=== PATIENT | male | born 1950 | race African-American/Black ===

== ENCOUNTER 2024-03-22 06:23 | Day surgery (SDC) | payer OTHER, SELFPAY ==
--- NOTE | 2023-09-22 11:57 | CM ---
Addendum entered by Vannesa Kim 02/17/24 12:11:
Patient's surgery date has been changed to 03/22/24. Spoke with patient via telephone. Reintroduced role of Orthopedic Navigator and confirmed information previously obtained for case management assessment. Also discussed orthopedic program and post
surgical plans. Reviewed anticipated length of stay and that goal is for him to return home at discharge. He continues to state that he will need VN services at discharge. He has watched the online education program but will watch it again prior to
surgery.
Addendum entered by Vannesa Kim 11/20/23 11:19:
Patient's surgery date has changed to 12/29/23.
Original Note:
Patient is scheduled for an elective L THR on 10/27/23. Spoke with patient prior to surgery via telephone. Introduced role of Orthopedic Navigator. Patient reports that he lives alone in a one story home. There is one step to enter, then 14-1 steps
to his apartment. He currently functions independently. He has canes, a grabber and long handled shoe horn. He has never had VN services. PCP is Ramirez Velasco.
Discussed orthopedic program and post surgical plans. Reviewed anticipated length of stay and that goal is for him to return home at discharge. Also reviewed outpatient PT. Patient is in agreement with tentative plan but will not have transportation
for outpatient PT and will need VN services. He states that he will have support from his friends but will not have anyone staying with him.
Patient will complete online education.
Plan: Orthopedic Navigator will remain available to assist with the care of patient and will reassess discharge needs after surgery.
[2023-10-06 13:53] VITALS: BMI 29.8
[2023-10-06 13:58] LABS: Hematocrit 40.4 % (39.0-52.0); Hemoglobin 13.8 g/dL (13.0-18.0); Mean Corp Hgb Conc. 34.2 g/dL (33.0-37.0); Mean Corpuscular Hgb 30.8 pg (27.0-31.0); Mean Corpuscular Volume 90.2 fL (80.0-94.0); Mean Platelet Volume 10.4 fL (7.4-10.4); Platelet Count 249 10^3/uL (130-400); Red Blood Cell Count 4.48 10^6/uL (4.70-6.10); Red Cell Dist. Width 13.5 % (11.5-14.5); White Blood Cell Count 4.8 10^3/uL (4.8-10.8)
[2023-10-06 14:09] LABS: ALT (SGPT) 32 U/L (0-50); AST (SGOT) 32 U/L (17-59); Albumin 4.1 g/dl (3.5-5.0); Alkaline Phosphatase 159 U/L (38-126); Blood Urea Nitrogen 21 mg/dl (9-20); Calcium 10.4 mg/dl (8.4-10.2); Carbon Dioxide 34 mmol/L (22-30); Chloride 97 mmol/L (98-107); Estimated Creatinine Clearance 53 ml/min; Glomerular Filtration Rate > 60.0; Glucose 72 mg/dl (70-99); Sodium 139 mmol/L (135-145); Total Bilirubin 1.3 mg/dl (0.2-1.3)
[2023-10-06 14:36] LABS: Glycohemoglobin (HgbA1c) 5.8 % (4.0-5.6)
[2023-10-06 14:41] VITALS: BMI 29.8
--- NOTE | 2023-10-21 10:23 | W.PREADMORTH ---
Ortho Preadmission Testing
-
The patient's surgery date of 10/27/2023 will be postponed due to dental decay requiring 3 tooth extractions prior to surgery.
His surgery date has been rescheduled for 12/29/2023.
--- NOTE | 2023-12-04 10:00 | PTCARENOTE ---
Pt states surgery was rescheduled due to dental issues, could not get dental clearance. He was prescribed antibiotics again in october for a dental infection, but he has not taken them because he wanted to get a second opinion, scheduled for 12/17.
Pt agreed to call the new dentist today and explain the situation and request appointment PITA.
[2023-12-10 11:46] LABS: Hematocrit 40.3 % (39.0-52.0); Mean Corp Hgb Conc. 34.7 g/dL (33.0-37.0); Mean Platelet Volume 10.7 fL (7.4-10.4); Platelet Count 241 10^3/uL (130-400); Red Blood Cell Count 4.38 10^6/uL (4.70-6.10); Red Cell Dist. Width 13.2 % (11.5-14.5); White Blood Cell Count 4.6 10^3/uL (4.8-10.8)
[2023-12-10 11:54] VITALS: BMI 29.2
[2023-12-10 11:59] LABS: ALT (SGPT) 30 U/L (0-50); AST (SGOT) 29 U/L (17-59); Albumin 3.9 g/dl (3.5-5.0); Alkaline Phosphatase 162 U/L (38-126); Blood Urea Nitrogen 21 mg/dl (9-20); Calcium 10.1 mg/dl (8.4-10.2); Carbon Dioxide 34 mmol/L (22-30); Chloride 102 mmol/L (98-107); Estimated Creatinine Clearance 50 ml/min; Glucose 76 mg/dl (70-99); Potassium 3.7 mmol/L (3.5-5.1); Sodium 138 mmol/L (135-145); Total Bilirubin 1.1 mg/dl (0.2-1.3); Total Protein 7.3 g/dl (6.3-8.2); eGFR > 60.00
[2023-12-10 12:19] LABS: Glycohemoglobin (HgbA1c) 5.8 % (4.0-5.6)
[2023-12-10 15:02] VITALS: BMI 29.2
--- NOTE | 2024-03-01 13:16 | HPS.HSE ---
Family Physician
-
Family Physician: Julio Cesar Velasco
Chief Complaint
-
Advanced osteoarthritis of the left hip.
History of Present Illness
73 yo male end stage arthritis of the left hip that has failed conservative
treatment measures. He has attempted multiple modalities including
intra-articular injection, self-directed exercise, activity
modification, NSAIDs, ice and heat. Imaging performed revealed bone-
on-bone changes with subchondral cyst formation. he was determined
to be in need of a left total hip arthroplasty. He currently denies
chest pain, shortness of breath, fever, chills, nausea, vomiting, or
diarrhea.
Medical History
Past Medical History
Past Medical History: Reports Other (see below)
Additional Past Medical History:
1. Osteoarthritis.
2. Hypertension.
3. History of tobacco abuse.
Past Surgical History: Reports None
Social History
Tobacco: Non-smoker
Alcohol: Occasional
Family History
Family History: Not pertinent
Allergies / Home Medications
Allergies reflects when Allergies were last updated in [facility].
Home Medications with original date entered in [facility]
Allergy/Medication List:
HOME MEDICATION:
1. Amlodipine 5 mg daily.
2. Hydrochlorothiazide 50 mg daily.
ALLERGIES: Crayfish. No known drug allergies.
Review of Systems
-
A 12 point ROS was completed and negative except as noted: Yes
Physical Exam
Physical Exam
General: Well Developed and Well Nourished
HEENT: NormoCephalic and Anicteric
Respiratory: Clear
Cardiac: S1/S2 and Regular Rhythm
GI: Soft, Non Tender and Normal Bowel Sounds
Musculoskeletal: No Edema
Skin: Warm and Dry
Laboratory Results
-
Laboratory Results
Total Bilirubin 1.1 mg/dl (0.2-1.3) 12/10/23 11:00
AST 29 U/L (17-59) 12/10/23 11:00
ALT 30 U/L (0-50) 12/10/23 11:00
Alkaline Phosphatase 162 U/L (38-126) H 12/10/23 11:00
Impression/Plan
-
CLEARANCES:
1. Primary medical, Julio Cesar Velasco PA-C, , pending.
2. Dental, Dr. Nancy Garcia, pending.
IMPRESSION/PLAN:
1. Advanced end-stage arthritis of the left hip scheduled for left
total hip arthroplasty. Benefits and risks have been discussed
with the patient. These risks are understood. he wishes to
proceed.
2. Deep vein thrombosis prophylaxis, aspirin with advised venous
compression device.
CONTACT INFORMATION:
1. Patient phone, .
2. Postoperative contact, Josseline, .
[2024-03-02 13:48] VITALS: BMI 30.6
[2024-03-02 14:03] LABS: Hematocrit 39.3 % (39.0-52.0); Hemoglobin 13.9 g/dL (13.0-18.0); Mean Corp Hgb Conc. 35.4 g/dL (33.0-37.0); Mean Corpuscular Hgb 31.3 pg (27.0-31.0); Mean Corpuscular Volume 88.5 fL (80.0-94.0); Mean Platelet Volume 10.2 fL (7.4-10.4); Platelet Count 246 10^3/uL (130-400); Red Blood Cell Count 4.44 10^6/uL (4.70-6.10); Red Cell Dist. Width 13.1 % (11.5-14.5); White Blood Cell Count 5.7 10^3/uL (4.8-10.8)
[2024-03-02 14:41] LABS: ALT (SGPT) 31 U/L (0-50); AST (SGOT) 33 U/L (17-59); Albumin 4.2 g/dl (3.5-5.0); Alkaline Phosphatase 168 U/L (38-126); Blood Urea Nitrogen 25 mg/dl (9-20); Calcium 10.3 mg/dl (8.4-10.2); Carbon Dioxide 29 mmol/L (22-30); Chloride 101 mmol/L (98-107); Estimated Creatinine Clearance 47 ml/min; Glucose 96 mg/dl (70-99); Potassium 3.4 mmol/L (3.5-5.1); Sodium 137 mmol/L (135-145); Total Protein 7.6 g/dl (6.3-8.2); eGFR 57.29
[2024-03-22] VITALS (13 sets, daily range): BP systolic 137–175; BP diastolic 81–105; PULSE 77–79; O2SAT 100
[2024-03-22] MEDS: BACTROBAN NASAL 1 GRAM NASAL (08:01)
[2024-03-22] MEDS: TYLENOL 650 MG PO ×3 (08:01→20:04)
[2024-03-22] MEDS: CELEBREX 200 MG PO (08:01)
[2024-03-22] MEDS: NORMOSOL-R 1000 IV ×2 (08:02→12:46)
[2024-03-22] MEDS: TYLENOL PO (12:00)
[2024-03-22 12:10] LABS: Glucose - Point of Care 104 mg/dl (70-99)
--- NOTE | 2024-03-22 14:00 | PTCARENOTE ---
pt admitted to room 8 from PACU at 1310. pt arrived via bed. awakens easily but drowsy. pt oriented to room, bed controls, call castaneda and plan of care with verbalized understanding. assessment as documented. Left hip aqua cell dressing clean
and dry. ice pack in place q20 minutes. neurovascular checks WNL. weak pedal pulses b/l. will observe.
[2024-03-22 16:09] LABS: Glucose - Point of Care 173 mg/dl (70-99)
[2024-03-22] MEDS: ASPIRIN 325 MG PO (17:09)
[2024-03-22] MEDS: ANCEF 5 IV (17:09)
[2024-03-22] MEDS: BACTROBAN 2% OINTMENT 1 APPLIC NASAL (20:04)
[2024-03-22] MEDS: TORADOL 15 MG IV (20:04)
[2024-03-22] MEDS: SENOKOT 17.1999999999999993 MG PO (20:05)
[2024-03-22] MEDS: COLACE 100 MG PO (20:05)
[2024-03-22] MEDS: PEPCID 40 MG PO (22:28)
[2024-03-22] MEDS: NEURONTIN 300 MG PO (22:28)
[2024-03-23] MEDS: TYLENOL PO ×3 (00:37→12:06)
[2024-03-23] MEDS: ANCEF 5 IV (02:26)
[2024-03-23 03:07] VITALS: BP 127/73
[2024-03-23 07:00] VITALS: BP 152/91
[2024-03-23] MEDS: ASPIRIN 325 MG PO (07:55)
[2024-03-23] MEDS: SENOKOT 17.1999999999999993 MG PO (07:55)
[2024-03-23] MEDS: COLACE 100 MG PO (07:55)
[2024-03-23] MEDS: CELEBREX 200 MG PO (07:55)
[2024-03-23] MEDS: TYLENOL 650 MG PO (07:55)
[2024-03-23] MEDS: BACTROBAN 2% OINTMENT 1 APPLIC NASAL (07:56)
[2024-03-23] MEDS: TORADOL 15 MG IV (07:56)
--- NOTE | 2024-03-23 08:17 | CM ---
Addendum entered by Vannesa Kim 03/23/24 11:24:
Patient did well in therapy. He has no concerns about going home. He has updated his friend.
Original Note:
Reviewed chart and held rounds with PT, OT and nursing. Patient admitted as planned for elective L THR. Met with patient at bedside. Confirmed information previously obtained for assessment. Also discussed discharge plans. The plan is for patient to
return home at discharge. He will have some support from friends when he goes home. Reviewed VN services including start of care (tentatively 03/24), services to be ordered (PT, OT, SN) and frequency/duration of services. Options list provided and
PAC data reviewed. Patient selects VN.
Patient has a rolling walker, raised toilet seat, grabber, long handled shoe horn and a cane at home.
VN referral was completed and sent to [facility] through [employer] with request for start of care on 03/24. Confirmation received of their ability to accept case. federal appellate law clerk to fax discharge instructions to [facility] when complete.
Patient will use [facility] pharmacy for discharge prescriptions.
--- NOTE | 2024-03-23 10:05 | W.PN.ORTHO ---
Today's Communication / Plan
-
d/c
Assessment
.
Distal Motor Intact: Yes
Dressing:
Clean, dry and intact.
Plan
.
Surgery / Date: Izzy Peters 03/22/24
DVT Prophylaxis: Aspirin
Activity:
Out of bed.
PT/OT
Discharge Plan: Home w/ VN
Subjective
.
.:
Patient resting comfortably.
Vital Signs and Labs
.
Vital Signs and Labs:
Lab Results
03/02/24 13:46
03/02/24 13:46
Temp Pulse Resp BP Pulse Ox
97.9 F 75 18 152/91 100
03/23/24 07:00 03/23/24 07:55 03/23/24 07:00 03/23/24 07:55 03/23/24 07:00
Non-invasive Hgb result: 10.5
Physical Exam
-
HEENT: No pallor, cyanosis, or jaundice. Throat clear.
NECK: Supple. No JVD.
RESPIRATORY: Lungs clear to auscultation.
CVS: S1, S2 normal. RRR.� No murmur, rub or gallop.
ABDOMEN: Soft, non-tender. No distension. BS+/normal.
EXTREMITIES: strength equal, no calf pain with palpation
ROUNDING AND BACKING MACHINE OPERATOR: AOx3. No focal deficits. wireless sales expert grossly intact
--- NOTE | 2024-03-23 10:11 | W.DS.TRANS ---
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
-
Discharge Instructions:
Sleep Apnea Risk Intermediate
Discharge Diagnosis/Procedures L MICHELLE Peters 03/22/24
Diet As tolerated
Activity With Walker
Driving Restrictions No driving
Bathing Restrictions OK to Shower
Other Services VN,PT,OT
Instructions:
Stand-Alone Forms: Total Hip/Knee Replacement D/C
Changes to Home Medications: Yes
Discharge Medications:
DC Medications w/original date entered in [facility]
ASA 325mg po daily
amlodipine 5 mg tablet 5 mg PO DAILY 09/29/23
calcium carb-vit D3-minerals 600 mg calcium-400 unit tablet 1 tab PO DAILY 09/29/23
collagen 500 mg PO DAILY 09/29/23
hydrochlorothiazide 50 mg tablet 50 mg PO DAILY 09/29/23
multivitamin 1 tab PO DAILY 09/29/23
naproxen sodium 220 mg tablet (Aleve) 440 mg PO PRN PRN PAIN 09/29/23
vitamin B complex 1 tab PO DAILY 09/29/23
Isotonix Opc3 1 cap PO DAILY 10/06/23
mupirocin 2 % topical ointment 1 applic topical BID infection prevention #1 tube 03/01/24
acetaminophen 325 mg capsule (Tylenol) 650 mg (2 x 325 mg) PO QID #2 caps 03/23/24
celecoxib 200 mg capsule 200 mg PO DAILY anti-inflammatory #14 caps 03/23/24
dexamethasone 4 mg tablet 4 mg PO BID inflammation #6 tabs 03/23/24
docusate sodium 100 mg capsule (Colace) 100 mg PO BID stool softner #1 cap 03/23/24
famotidine 20 mg tablet 20 mg PO HS GI prophylaxis #30 tabs 03/23/24
gabapentin 300 mg capsule 300 mg PO HS sleep/pain #10 caps 03/23/24
magnesium hydroxide 400 mg/5 mL oral suspension (Milk of Magnesia) 30 ml PO HS PRN Constipation #1 mL 03/23/24
sennosides 8.6 mg tablet (Senokot) 17.2 mg (2 x 8.6 mg) PO BID laxative #2 tabs 03/23/24
tramadol 50 mg tablet 50 mg PO Q6H PRN 1 tab moderate pain, 2 if severe #30 tabs 03/23/24
Home Medication Changes
ASA 325mg po daily
celecoxib 200 mg capsule 200 mg PO DAILY anti-inflammatory #14 caps 03/23/24
dexamethasone 4 mg tablet 4 mg PO BID inflammation #6 tabs 03/23/24
famotidine 20 mg tablet 20 mg PO HS GI prophylaxis #30 tabs 03/23/24
gabapentin 300 mg capsule 300 mg PO HS sleep/pain #10 caps 03/23/24
tramadol 50 mg tablet 50 mg PO Q6H PRN 1 tab moderate pain, 2 if severe #30 tabs 03/23/24
Pending Results: No
[2024-03-23 10:57] VITALS: BP 134/78; PULSE 83
[2024-03-23 11:00] VITALS: BP 134/73
[2024-03-23 11:04] VITALS: BP 126/68; PULSE 68; O2SAT 99
== END 2024-03-23 12:39 | disposition home health service (06) ==
LOC: SDS 06:23
PROVIDERS: ATTENDING PHYSICIAN Specialist; FAMILY PHYSICIAN Physician Assistant Medical; OTHER PHYSICIAN Physician Assistant Medical
DX: M16.12 Unilateral primary osteoarthritis, left hip (principal)
CPT/HCPCS: 27130; C1776; C1713; 36415; 73502; 80053; 82962; 83036; 85027; 87070; 93005; 97110; 97116; 97162; 97166; 97530; 97535

== ENCOUNTER 2025-02-28 06:15 | Day surgery (SDC) | payer OTHER, SELFPAY ==
[2025-02-02 14:20] VITALS: BMI 29.0
[2025-02-02 14:21] LABS: Hematocrit 42.8 % (39.0-52.0); Hemoglobin 14.7 g/dL (13.0-18.0); Mean Corp Hgb Conc. 34.3 g/dL (33.0-37.0); Mean Corpuscular Hgb 31.7 pg (27.0-31.0); Mean Corpuscular Volume 92.4 fL (80.0-94.0); Mean Platelet Volume 10.4 fL (7.4-10.4); Platelet Count 233 10^3/uL (130-400); Red Blood Cell Count 4.63 10^6/uL (4.70-6.10); Red Cell Dist. Width 13.2 % (11.5-14.5); White Blood Cell Count 4.4 10^3/uL (4.8-10.8)
[2025-02-02 15:30] LABS: ALT (SGPT) 35 U/L (0-50); AST (SGOT) 27 U/L (17-59); Albumin 4.2 g/dl (3.5-5.0); Alkaline Phosphatase 162 U/L (38-126); Blood Urea Nitrogen 22 mg/dl (9-20); Calcium 10.3 mg/dl (8.4-10.2); Carbon Dioxide 35 mmol/L (22-30); Chloride 97 mmol/L (98-107); Estimated Creatinine Clearance 46 ml/min; Glucose 97 mg/dl (70-99); Potassium 3.3 mmol/L (3.5-5.1); Sodium 140 mmol/L (135-145); Total Bilirubin 1.3 mg/dl (0.2-1.3); Total Protein 7.3 g/dl (6.3-8.2); eGFR > 60.00
[2025-02-03 08:13] LABS: Glycohemoglobin (HgbA1c) 6.1 % (4.0-5.6)
--- NOTE | 2025-02-15 11:51 | VNURNOTE ---
Patient is scheduled for an elective L TKR on 02/28/25- he is a same day patient with Dr Peters. Spoke with patient prior to surgery. Introduced role of [facility] Liaison. Patient reports that he lives alone in a MULTI story home.
There are 14 steps to enter .
He has a raised toilet seat, cane and rolling walker.
He had VN services after his prior THR but was not same day surgery.
PCP is Dr tiarra medel
Discussed [facility] joint protocol and post surgical plans.
Reviewed that he will have VN services initially and will then start outpatient PT.
Patient selects VN for his home care needs and does not feel he needs outpt PT. He stated he did not have outpt PT after his hip. Kellen Muniz notified.
Patient is in agreement with plan and states that his neighbor Angie will be home with him. Advised to bring RW with him day of surgery. Referral placed in [facility].
Plan: [facility] per [facility] joint protocol 02/28 then outpt PT TBD
[2025-02-22 11:09] VITALS: BMI 29.0
[2025-02-28] VITALS (13 sets, daily range): BP systolic 112–157; BP diastolic 70–96; PULSE 89; O2SAT 95
[2025-02-28] MEDS: TYLENOL 650 MG PO ×5 (08:10→23:55)
[2025-02-28] MEDS: CELEBREX 200 MG PO (08:10)
[2025-02-28] MEDS: NORMOSOL-R/PLASMALYTE-A 1000 IV ×2 (08:34→13:53)
--- NOTE | 2025-02-28 12:25 | W.DS.TRANS ---
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
-
Discharge Instructions:
Sleep Apnea Risk Intermediate
Discharge Diagnosis/Procedures L TKA 02/28/25
Diet Diabetic, Carb Controlled
Activity With Walker
Driving Restrictions No driving
Bathing Restrictions OK to Shower
Instructions:
Stand-Alone Forms: Total Hip/Knee Replacement D/C
Changes to Home Medications: Yes
Discharge Medications:
DC Medications w/original date entered in [facility]
amlodipine 5 mg tablet 5 mg PO DAILY 09/29/23
hydrochlorothiazide 50 mg tablet 50 mg PO DAILY 09/29/23
Calcium Plus 1 unit PO DAILY 01/31/25
Multitech 1 unit PO DAILY 01/31/25
Opc 3 1 unit PO DAILY 01/31/25
vitamin B complex 1 unit PO DAILY 01/31/25
celecoxib 200 mg capsule (Celebrex) 200 mg PO DAILY #14 caps 02/02/25
dexamethasone 4 mg tablet 4 mg PO BID Anti-inflammatory #7 tabs 02/02/25
famotidine 20 mg tablet (Pepcid) 20 mg PO HS #30 tabs 02/02/25
gabapentin 300 mg capsule 300 mg PO HS sleep/pain #10 caps 02/02/25
mupirocin 2 % topical ointment 1 applic intranasal BID #1 tube 02/02/25
ondansetron HCl 4 mg tablet 4 mg PO Q6H PRN nausea and vomiting #30 tabs 02/02/25
oxycodone 5 mg tablet 5 - 10 mg (1 - 2 x 5 mg) PO Q6H PRN moderate-severe pain #30 tabs 02/02/25
acetaminophen 325 mg tablet (Tylenol) 650 mg (2 x 325 mg) PO QID #1 tab 02/28/25
aspirin 325 mg tablet 325 mg PO DAILY blood clot prevention #1 tab 02/28/25
docusate sodium 100 mg capsule (Colace) 100 mg PO BID stool softner #1 cap 02/28/25
magnesium hydroxide 400 mg/5 mL oral suspension (Milk of Magnesia) 30 ml PO HS PRN Constipation #1 mL 02/28/25
sennosides 8.6 mg tablet (Senokot) 17.2 mg (2 x 8.6 mg) PO BID laxative #2 tabs 02/28/25
Home Medication Changes
celecoxib 200 mg capsule (Celebrex) 200 mg PO DAILY #14 caps 02/02/25
dexamethasone 4 mg tablet 4 mg PO BID Anti-inflammatory #7 tabs 02/02/25
famotidine 20 mg tablet (Pepcid) 20 mg PO HS #30 tabs 02/02/25
gabapentin 300 mg capsule 300 mg PO HS sleep/pain #10 caps 02/02/25
mupirocin 2 % topical ointment 1 applic intranasal BID #1 tube 02/02/25
ondansetron HCl 4 mg tablet 4 mg PO Q6H PRN nausea and vomiting #30 tabs 02/02/25
oxycodone 5 mg tablet 5 - 10 mg (1 - 2 x 5 mg) PO Q6H PRN moderate-severe pain #30 tabs 02/02/25
acetaminophen 325 mg tablet (Tylenol) 650 mg (2 x 325 mg) PO QID #1 tab 02/28/25
aspirin 325 mg tablet 325 mg PO DAILY blood clot prevention #1 tab 02/28/25
docusate sodium 100 mg capsule (Colace) 100 mg PO BID stool softner #1 cap 02/28/25
magnesium hydroxide 400 mg/5 mL oral suspension (Milk of Magnesia) 30 ml PO HS PRN Constipation #1 mL 02/28/25
sennosides 8.6 mg tablet (Senokot) 17.2 mg (2 x 8.6 mg) PO BID laxative #2 tabs 02/28/25
Pending Results: No
[2025-02-28] MEDS: ROXICODONE 5 MG PO (12:39)
--- NOTE | 2025-02-28 17:15 | PTCARENOTE ---
Pt received from the PACU via bed. Transport was w/o incident. Pt is AAOx3, HR sl irreg. 68 apically. Lungs are clear, resp. easy. Pulse ox 100%RA. Pt's left knee w/ antibacterial dressing with moderate amount of bloody drainage noted. Ice pack
applied as ordered. Pt's knee w/ noted edema 1+. Pt reports he has full sensation to b/l legs/feet. Pt has normal pulses b/l DP. vss, pt is afebrile. Pt instructed on plan of care. Pt verbalized understanding of instructions, call castaneda is within
reach.
[2025-02-28] MEDS: ANCEF 5 IV (18:30)
[2025-02-28] MEDS: ASPIRIN 325 MG PO (18:30)
[2025-02-28] MEDS: SENOKOT 17.2 MG PO (19:40)
[2025-02-28] MEDS: COLACE 100 MG PO (19:40)
[2025-02-28] MEDS: BACTROBAN 2% OINTMENT 1 APPLIC NASAL (19:40)
[2025-02-28] MEDS: DECADRON 4 MG IV (22:21)
[2025-02-28] MEDS: ULTRAM 50 MG PO (22:21)
[2025-02-28] MEDS: NEURONTIN 300 MG PO (22:21)
[2025-02-28] MEDS: TORADOL 15 MG IV (22:21)
[2025-03-01] MEDS: ANCEF 5 IV (02:02)
[2025-03-01 03:15] VITALS: BP 141/75
[2025-03-01] MEDS: TYLENOL PO (04:14)
[2025-03-01] MEDS: DECADRON 4 MG IV (05:44)
[2025-03-01] MEDS: ULTRAM 50 MG PO (05:44)
[2025-03-01] MEDS: TORADOL 15 MG IV (05:44)
[2025-03-01 07:10] VITALS: BP 148/79
[2025-03-01] MEDS: CELEBREX 200 MG PO (08:19)
[2025-03-01] MEDS: ASPIRIN 325 MG PO (08:19)
[2025-03-01] MEDS: SENOKOT 17.2 MG PO (08:20)
[2025-03-01] MEDS: BACTROBAN 2% OINTMENT 1 APPLIC NASAL (08:20)
[2025-03-01] MEDS: COLACE 100 MG PO (08:20)
[2025-03-01] MEDS: TYLENOL 650 MG PO (08:20)
[2025-03-01] MEDS: ZOFRAN 4 MG IV (08:28)
--- NOTE | 2025-03-01 08:50 | W.PN.ORTHO ---
Today's Communication / Plan
-
d/c
Assessment
.
Distal Motor Intact: Yes
Dressing:
Clean, dry and intact.
Plan
.
Surgery / Date: Izzy Peters 02/28/25
DVT Prophylaxis: Aspirin
Activity:
Out of bed.
PT/OT
Discharge Plan: Home w/ Outpatient PT
Subjective
.
.:
Patient resting comfortably.
Vital Signs and Labs
.
Vital Signs and Labs:
Lab Results
02/02/25 13:23
02/02/25 13:22
Temp Pulse Resp BP Pulse Ox
98.1 F 75 16 148/79 96
03/01/25 07:10 03/01/25 07:10 03/01/25 07:10 03/01/25 07:10 03/01/25 07:10
Non-invasive Hgb result: 12.7
Physical Exam
-
HEENT: No pallor, cyanosis, or jaundice. Throat clear.
NECK: Supple. No JVD.
RESPIRATORY: Lungs clear to auscultation.
CVS: S1, S2 normal. RRR.� No murmur, rub or gallop.
ABDOMEN: Soft, non-tender. No distension. BS+/normal.
EXTREMITIES: strength equal, no calf pain with palpation
MANAGER COSTING: AOx3. No focal deficits. hypoid gear generator grossly intact
[2025-03-01 09:09] VITALS: BP 133/80; PULSE 63
--- NOTE | 2025-03-01 09:15 | CM ---
Cm reviewed medical records. CM met with patient in room. Patient as pleasant and interactive during IA. Patient is looking forward to going homr. Patient confirmed demographics. Patient lives alone, but has a neighbor who can provide supervision
and support. Patient is active with his PCP. Patient uses [facility] in [place]. Patient has been referred to [facility] and is agreeable to [facility]. CM updated DVN herb digger RN with plan for discharge today.
Patient confirmed that he has a commode, walker, extended grab bar.
Patient will be transported home by his friend.
PLAN: Home with [facility].
[2025-03-01 09:53] VITALS: BP 140/86
[2025-03-01 10:09] VITALS: BP 131/72
== END 2025-03-01 12:01 | disposition home or self-care (01) ==
LOC: SDS 06:15
PROVIDERS: ATTENDING PHYSICIAN Specialist; FAMILY PHYSICIAN Physician Assistant
DX: M17.12 Unilateral primary osteoarthritis, left knee (principal); R73.03 Prediabetes; Z96.642 Presence of left artificial hip joint
CPT/HCPCS: 27447; 36415; 73560; 80053; 83036; 85027; 87070; 93005; 97110; 97116; 97162; 97166; 97535; C1713; C1776

== ENCOUNTER 2025-08-10 22:38 | Inpatient (IN) | payer OTHER, SELFPAY ==
[2025-08-10 17:03] VITALS: BP 135/93
[2025-08-10 18:14] VITALS: BP 159/75
[2025-08-10 18:15] VITALS: BMI 29.2
[2025-08-10 19:33] VITALS: BP 149/79
[2025-08-10 20:15] LABS: Hematocrit 39.2 % (39.0-52.0); Hemoglobin 13.1 g/dL (13.0-18.0); Mean Corp Hgb Conc. 33.4 g/dL (33.0-37.0); Mean Corpuscular Volume 89.7 fL (80.0-94.0); Nucleated Red Blood Cells % 0 % (-); Platelet Count 239 10^3/uL (130-400); Red Cell Dist. Width 13.0 % (11.5-14.5)
[2025-08-10 20:34] LABS: Blood Urea Nitrogen 21 mg/dl (9-20); Calcium 10.1 mg/dl (8.4-10.2); Carbon Dioxide 25 mmol/L (22-30); Chloride 107 mmol/L (98-107); Estimated Creatinine Clearance 47 ml/min; Glucose 77 mg/dl (70-99); Sodium 139 mmol/L (135-145); eGFR > 60.00
[2025-08-10 21:24] VITALS: BP 149/89
--- NOTE | 2025-08-10 21:30 | ED.GENMED ---
History of Present Illness
<Eric Beltran, DO - Last Filed: 08/10/25 21:37>
General
Chief Complaint: Swelling
Time Seen by Provider: 08/10/25 17:37
<Domitila Edwards NP - Last Filed: 08/10/25 21:44>
General
Source: patient
Exam Limitations: none
Nursing documentation reviewed up to this point in time: agreed with
History of Present Illness
History of Present Illness:
Patient to ED with complaint of increasing LLE swelling and drainage. States he has had a hip and knee replacement in the past and always has some swelling to this extremity. He states for the the past 1-2 weeks the swelling has worsened. He now
notes that his lower leg is draining. He states his PCP placed him on an antibiotic 1 week ago without improvement. He does not recall name of antibiotic. He was seen by PCP today and advised to come to ED. He denies pain. Denes fever/chills,
denies recent trauma.
Past History
<Domitila Edwards NP - Last Filed: 08/10/25 21:44>
Past History
ED Past Medical History: GERD and HTN
ED Past Surgical History: Orthopedic
Review of Systems
<Domitila Edwards NP - Last Filed: 08/10/25 21:44>
Review of Systems
Allergies reviewed?: Yes
All Other Systems: ROS reviewed and negative except as documented in HPI and ROS
Constitutional: Reports no symptoms
EENT: Reports no symptoms
Respiratory: Reports no symptoms
Cardiac: Reports no symptoms
ABD/GI: Reports no symptoms
: Reports no symptoms
Musculoskeletal: Reports no symptoms
Skin: Reports other (swelling, drainage LLE. )
Neurological: Reports no symptoms
Psychiatric: Reports no symptoms
Phy Exam
<Domitila Edwards NP - Last Filed: 08/10/25 21:44>
General Physical Exam
General Presentation: mild distress
General age: appears stated age
General Skin: warm and dry
General Habitus: normal
General Mental: alert
Cardiovascular Exam
Cardiovascular Exam: regular rate/rhythm
Musculoskeletal Exam
Musculoskeletal Exam: full ROM and neuro vasc intact (Pedal pulses by doppler)
Skin Exam
Skin Exam: other (Swelling and drainage to LLE. Left lower leg, anterior surface with large (appprox [id number]) area which patient states blistered and then opened. Area draining large amt of serous drainage. Culture obtained.)
Psychiatric Exam
Psychiatric Exam: normal mood/affect
Scores
<Domitila Edwards VALUATION CONSULTANT - Last Filed: 08/10/25 21:44>
Heart Failure Risk
Heart Failure Risk Score: Not Applicable
Course
<Eric Beltran, DO - Last Filed: 08/10/25 21:37>
Orders/Labs/Results
Orders:
Orders
08/10/25 17:46
Periph Venous Lwr Ext Left US [US Periph Venous LOWER Ext LT] Urgent
Comment:
Reason For Exam: redness, swelling
08/10/25 20:05
Basic Metabolic Panel Urgent
Complete Blood Count/With Diff Urgent
08/10/25 20:06
Lactic Acid Urgent
08/10/25 20:07
Wound Culture [Wound/Abscess/Other Culture] Urgent
SYLVIA Source: Leg
Specimen Description: Left
Date Specimen was Collected: 08/10/25
Time Specimen was Collected: 18:32
08/10/25 21:39
Vancomycin [Vancocin] 2,000 mg 0.9% Sodium Chloride 500 ml [Nss] 500 ml IV NOW
Abnormal Lab Results
08/10/25
20:05
RBC 4.37 L 10^6/uL
(4.70-6.10)
Absolute Monos (auto) 0.8 H 10^3/uL
(0.1-0.6)
Immature Gran % 0.6 H %
(0-0.5)
Monocytes % 11.5 H %
(1.7-9.3)
BUN 21 H mg/dl
(9-20)
08/10/25 20:05
08/10/25 20:05
Vital Signs
Initial and Last Documented VS:
Initial Vital Signs
Temp Pulse Resp BP Pulse Ox
97.8 F 69 16 135/93 99
08/10/25 17:03 08/10/25 17:03 08/10/25 17:03 08/10/25 17:03 08/10/25 17:03
Last Documented Vital Signs
Temp Pulse Resp BP Pulse Ox
97.8 F 72 17 149/79 98
08/10/25 17:03 08/10/25 20:45 08/10/25 20:45 08/10/25 19:33 08/10/25 21:37
<Domitila Edwards, VALUATION CONSULTANT - Last Filed: 08/10/25 21:44>
Orders/Labs/Results
Orders:
Orders
08/10/25 17:46
Periph Venous Lwr Ext Left US [US Periph Venous LOWER Ext LT] Urgent
Comment:
Reason For Exam: redness, swelling
08/10/25 20:05
Basic Metabolic Panel Urgent
Complete Blood Count/With Diff Urgent
08/10/25 20:06
Lactic Acid Urgent
08/10/25 20:07
Wound Culture [Wound/Abscess/Other Culture] Urgent
SYLVIA Source: Leg
Specimen Description: Left
Date Specimen was Collected: 08/10/25
Time Specimen was Collected: 18:32
08/10/25 21:39
Vancomycin [Vancocin] 2,000 mg 0.9% Sodium Chloride 500 ml [Nss] 500 ml IV NOW
Abnormal Lab Results
08/10/25
20:05
RBC 4.37 L 10^6/uL
(4.70-6.10)
Absolute Monos (auto) 0.8 H 10^3/uL
(0.1-0.6)
Immature Gran % 0.6 H %
(0-0.5)
Monocytes % 11.5 H %
(1.7-9.3)
BUN 21 H mg/dl
(9-20)
08/10/25 20:05
08/10/25 20:05
Vital Signs
Initial and Last Documented VS:
Initial Vital Signs
Temp Pulse Resp BP Pulse Ox
97.8 F 69 16 135/93 99
08/10/25 17:03 08/10/25 17:03 08/10/25 17:03 08/10/25 17:03 08/10/25 17:03
Last Documented Vital Signs
Temp Pulse Resp BP Pulse Ox
97.8 F 72 17 149/79 98
08/10/25 17:03 08/10/25 20:45 08/10/25 20:45 08/10/25 19:33 08/10/25 21:37
<Domitila Edwards NP - Last Filed: 08/10/25 21:44>
*Pulse Oximetry
SaO2: 98
Oxygen Mode of Delivery: Room air
Patient hypoxic: no
*Critical Care Note
Total Time (30-74mins, 75-104mins- exclusive of procedures): Not Applicable
<Domitila Edwards NP - Last Filed: 08/10/25 21:44>
Update Note
Update Note:
Patient to ED with complaint of increasing swelling and drainage from left lower leg. States he developed a large blister which opened and continues to drain a large amt of fluid. Placed on unknown antibiotic last week without improvement. VSS,
he remains afebrile. WBC 7.2, lactic1.6. US neg for DVT. Case discussed with Dr. Beltran who also evaluated this patient. WIll admit to hospitalist for cellulitis. IV antibiotcs started in dept. CUlture of drainage obtained, results pending.
ED Attending Note
<Eric Beltran DO - Last Filed: 08/10/25 21:37>
ED Attending Note
Patient seen and examined by attending physician: Yes
ED Attending Note:
I reviewed and agree with history and treatment plan by Domitila Edwards. My exam revealed 75-year-old male with blistering and left lower leg cellulitis swelling. Patient failing outpatient antibiotics unclear what outpatient about it was.
Ultrasound negative for DVT. Admit to hospitalist. IV vancomycin ordered.
<Domitila Edwards, LONNIE - Last Filed: 08/10/25 21:44>
-
Portions of this chart may have been created with voice recognition software.� Occasional wrong word or��sound alike� substitutions may have occurred due to the inherent limitations of voice recognition software.
Discharge Plan
Departure
Patient Disposition: Admit
Date of Disposition: 08/10/25
Time of Disposition: 21:40
Presentation/result/management discussed w/ accepting MD/DO: Hospitalist
Patient with high blood pressure during this ER visit?: No
Condition: Fair
Covid-19: Not Applicable
Discharge Problem:
Cellulitis of left lower leg
Prescriptions:
No Action
hydrochlorothiazide 50 mg Tablet
50 mg PO DAILY
amlodipine 5 mg Tablet
5 mg PO DAILY
Calcium Plus
1 unit PO DAILY
Multitech
1 unit PO DAILY
Opc 3
1 unit PO DAILY
vitamin B complex
1 unit PO DAILY
oxycodone 5 mg tablet
5 - 10 mg PO Q6H PRN (Reason: moderate-severe pain) Qty: 30 0RF
Rx Instructions:
1 tab for moderate pain, 2 if severe.
Dx total joint.
celecoxib [Celebrex] 200 mg capsule
200 mg PO DAILY Qty: 14 0RF
Rx Instructions:
Take with food.
DO NOT take within 2 hours of Aspirin post-surgery.
dexamethasone 4 mg tablet
4 mg PO BID Qty: 7 0RF
Rx Instructions:
Start night of discharge and continue twice a day until finished.
Take with food.
gabapentin 300 mg capsule
300 mg PO HS Qty: 10 0RF
ondansetron HCl 4 mg tablet
4 mg PO Q6H PRN (Reason: nausea and vomiting) Qty: 30 0RF
famotidine [Pepcid] 20 mg tablet
20 mg PO HS Qty: 30 0RF
Rx Instructions:
Take nightly while on post-surgical pain meds to reduce GI upset.
mupirocin 2 % ointment
1 applic intranasal BID Qty: 1 0RF
sennosides [Senokot] 8.6 mg tablet
17.2 mg PO BID Qty: 2 0RF
acetaminophen [Tylenol] 325 mg tablet
650 mg PO QID Qty: 1 0RF
Rx Instructions:
SCHEDULED DOSING
aspirin 325 mg tablet
325 mg PO DAILY Qty: 1 0RF
Rx Instructions:
Take with food
magnesium hydroxide [Milk of Magnesia] 400 mg/5 mL suspension
30 ml PO HS PRN (Reason: Constipation) Qty: 1 0RF
docusate sodium [Colace] 100 mg capsule
100 mg PO BID Qty: 1 0RF
Referrals:
Kp Tidwell PA [Family Provider, Family Practice]
Interventions
Interventions:
*Risk Screen - Suicide Last Done: 08/10/25 18:16
*General Assessment Last Done: 08/10/25 18:16
*Neglect/Abuse Screening Last Done: 08/10/25 18:16
*ED- Fall Risk Assessment Last Done: 08/10/25 18:16
*ED COVID-19 Vaccine History Last Done: 08/10/25 18:16
ED-Skin Assessment Last Done: 08/10/25 18:45
ED- Pulmonary Assessment Last Done: 08/10/25 18:45
ED- Cardiac Assessment Last Done: 08/10/25 18:45
Discharge Date and Time
Print Language: MOZAMBICAN
[2025-08-10 22:00] VITALS: BP 126/102
--- NOTE | 2025-08-10 22:13 | HPS.HSE ---
Family Physician
-
Family Physician: DARIN Mccarty
Chief Complaint
-
left leg swelling
History of Present Illness
75-year-old male past medical history of osteoarthritis, hypertension, prediabetes, former tobacco use, presenting with increased left lower extremity swelling and blister that ruptured with drainage.
He states that he had left knee surgery in January and since then he has had chronic swelling in the left lower extremity. He has also had swelling in the right lower extremity which has proceeded with the surgery but that does not bother him.
3 weeks ago he had a blister on his left lower extremity which bursted with the wound and redness of the left leg. Denies pain. Denies fevers or chills. His primary care physician started oral antibiotic which he has been taking for 2 weeks
without improvement. He denies any trauma or injury to the leg.
He is not smoking anymore. Denies alcohol.
Medical History
Past Medical History
Past Medical History: Reports Other (osteoarthritis, hypertension, prediabetes, former tobacco use)
Past Surgical History: Reports None
Social History
Tobacco: Former Smoker
Alcohol: None
Drug: None
Family History
Family History: Not pertinent
Allergies / Home Medications
Allergies reflects when Allergies were last updated in [facility].
Home Medications with original date entered in [facility]
Allergy/Medication List:
Allergies
Allergy/AdvReac Type Severity Reaction Status Date / Time
crayfish Allergy Nausea Verified 08/10/25 17:05
Home Medications
amlodipine 5 mg tablet 5 mg PO DAILY 09/29/23
hydrochlorothiazide 50 mg tablet 50 mg PO DAILY 09/29/23
Calcium Plus 1 unit PO DAILY 01/31/25
Multitech 1 unit PO DAILY 01/31/25
Opc 3 1 unit PO DAILY 01/31/25
Held on 02/28/25. Instructions: Resume on 03/08/25.
vitamin B complex 1 unit PO DAILY 01/31/25
celecoxib 200 mg capsule (Celebrex) 200 mg PO DAILY #14 caps 02/02/25
dexamethasone 4 mg tablet 4 mg PO BID Anti-inflammatory #7 tabs 02/02/25
famotidine 20 mg tablet (Pepcid) 20 mg PO HS #30 tabs 02/02/25
gabapentin 300 mg capsule 300 mg PO HS sleep/pain #10 caps 02/02/25
mupirocin 2 % topical ointment 1 applic intranasal BID #1 tube 02/02/25
ondansetron HCl 4 mg tablet 4 mg PO Q6H PRN nausea and vomiting #30 tabs 02/02/25
oxycodone 5 mg tablet 5 - 10 mg (1 - 2 x 5 mg) PO Q6H PRN moderate-severe pain #30 tabs 02/02/25
acetaminophen 325 mg tablet (Tylenol) 650 mg (2 x 325 mg) PO QID #1 tab 02/28/25
aspirin 325 mg tablet 325 mg PO DAILY blood clot prevention #1 tab 02/28/25
docusate sodium 100 mg capsule (Colace) 100 mg PO BID stool softner #1 cap 02/28/25
magnesium hydroxide 400 mg/5 mL oral suspension (Milk of Magnesia) 30 ml PO HS PRN Constipation #1 mL 02/28/25
sennosides 8.6 mg tablet (Senokot) 17.2 mg (2 x 8.6 mg) PO BID laxative #2 tabs 02/28/25
Review of Systems
-
History Source: Patient
A 12 point ROS was completed and negative except as noted: Yes
Constitutional: Reports No Symptoms
EENT: Reports No Symptoms
Respiratory: Reports No Symptoms
Cardiac: Reports No Symptoms
Abdomen/GI: Reports No Symptoms
: Reports No Symptoms
Musculoskeletal: Reports No Symptoms
Skin: Reports See HPI
Neurological: Reports No Symptoms
Endocrine: Reports No Symptoms
Hematologic/Lymphatic: Reports No Symptoms
Psych: Reports No Symptoms
Physical Exam
Vital Signs
Vital Signs
Temp Pulse Resp BP Pulse Ox
97.8 F 74 16 149/89 98
08/10/25 17:03 08/10/25 21:24 08/10/25 21:24 08/10/25 21:24 08/10/25 21:37
Physical Exam
General: Well Developed, Well Nourished and No Apparent Distress
HEENT: NormoCephalic, Moist mucous membranes and Atraumatic
Respiratory: Clear
Cardiac: S1/S2 and Regular Rhythm; No Murmur or Rub
GI: Soft, Non Tender, Non Distended and Normal Bowel Sounds; No Organomegaly
Rectal: Deferred by Provider
Musculoskeletal: No Clubbing, No Cyanosis and No Edema
Skin: Other (left leg edema,erythema with blister wound); No Rash
Neuro: Nonfocal/grossly intact
Laboratory Results
-
08/10/25 20:05
08/10/25 20:05
Laboratory Results
Lactic Acid 1.6 mmol/L (0.7-2.0) 08/10/25 20:06
Total Bilirubin Cancelled 08/10/25 20:05
AST Cancelled 08/10/25 20:05
ALT Cancelled 08/10/25 20:05
Alkaline Phosphatase Cancelled 08/10/25 20:05
Data Reviewed
-
Lab Data: Labs Reviewed by me
Old Records: Reviewed
Impression/Plan
-
IMPRESSION:
PLAN:
# Left lower extremity cellulitis/edema blistering superimposed on increased edema from knee surgery this year
# Bilateral lower extremity suspect underlying venous insufficiency/lymphedema
- Venous ultrasound shows no evidence of DVT
- Wound culture
-Vancomycin given in ER, continue for now
- Wound care
- Needs compression stocking
Osteoarthritis
- Continue aspirin, celecoxib,
Essential hypertension
- Continue amlodipine, hydrochlorothiazide,
Prediabetes
Tobacco use
Full code
DVT prophylaxis�heparin
Regular diet
[2025-08-10] MEDS: VANCOCIN 540 MG IV (22:23)
[2025-08-10 23:00] VITALS: BP 132/67
[2025-08-11 00:05] VITALS: BP 173/84; BMI 28.6
--- NOTE | 2025-08-11 00:05 | PTCARENOTE ---
Pt arrived onto floor @0005. Pt AAOx3 and a stand by assist to the bed. Pt with no complaints of pain or SOB at this time. Pt oriented to room and call castaneda; will continue to monitor
[2025-08-11 03:30] VITALS: BP 133/86
[2025-08-11 06:51] LABS: Hematocrit 35.2 % (39.0-52.0); Hemoglobin 11.9 g/dL (13.0-18.0); Mean Corp Hgb Conc. 33.8 g/dL (33.0-37.0); Mean Corpuscular Volume 90.0 fL (80.0-94.0); Nucleated Red Blood Cells % 0 % (-); Platelet Count 225 10^3/uL (130-400); Red Cell Dist. Width 13.1 % (11.5-14.5)
[2025-08-11 07:16] LABS: ALT (SGPT) 18 U/L (0-50); AST (SGOT) 17 U/L (17-59); Albumin 3.2 g/dl (3.5-5.0); Alkaline Phosphatase 122 U/L (38-126); Blood Urea Nitrogen 16 mg/dl (9-20); Calcium 9.2 mg/dl (8.4-10.2); Carbon Dioxide 28 mmol/L (22-30); Chloride 107 mmol/L (98-107); Estimated Creatinine Clearance 51 ml/min; Glucose 98 mg/dl (70-99); Potassium 4.1 mmol/L (3.5-5.1); Sodium 139 mmol/L (135-145); Total Protein 6.0 g/dl (6.3-8.2); eGFR > 60.00
--- NOTE | 2025-08-11 07:54 | PHA.VAN.IN ---
Assessment
- Assessment
Renal Function: Appears similar to baseline
AUC Dosing Plan
- Dosing Variables
Dosing Weight (kg): 80
Dosing CrCl (ml/min): 51
Vd coefficient (L/kg): 0.7
- Empiric Dosing
Initial / Loading Dose: 2000mg - 08/10 22:23
Maintenance Regimen: Vanc 1250mg Q24H - first dose at 1200 today then 08/12 06
Estimated AUC (mcg*h/mL): 494
Estimated Peak (mcg*h/mL): 33
Estimated Trough (mcg/ml): 11.6
Estimated Half Life (H): 14.8
- Monitoring
No levels ordered at this time: consider levels in next few days
Pharmacokinetics Vancomycin I
- -
Patient Age: 75
Patient Sex: Male
Vancomycin Day #: 1
Indication: Skin And Soft Tissue
Requesting Provider: Dr. Mcmanus
Pertinent Antimicrobial Allergies:
no pertinent antibiotic allergies
Height / Weight:
Height 5 ft 6 in
Actual Weight 80.24 kg
- Vital Signs / Lab Results
Temp Pulse Resp BP Pulse Ox
98.3 F 69 18 133/86 97
08/11/25 00:05 08/11/25 03:30 08/11/25 00:05 08/11/25 03:30 08/11/25 00:05
Lab Results - Hematology
08/10/25 08/10/25 08/11/25
18:32 20:05 06:00
WBC Cancelled 7.2 5.8
Lab Results - Chemistry
08/10/25 08/10/25 08/11/25
18:32 20:05 06:00
BUN Cancelled 21 H 16
Creatinine Cancelled 1.2 1.1
Estimated Creat Clear Cancelled 47 51
Albumin Cancelled Cancelled 3.2 L
08/10/25 08/10/25
18:32 20:06
Lactic Acid Cancelled 1.6
[2025-08-11 08:36] VITALS: BP 140/85
[2025-08-11] MEDS: HEPARIN 5000 UNITS SC (09:10)
[2025-08-11] MEDS: ORETIC 50 MG PO (09:11)
[2025-08-11] MEDS: NORVASC 5 MG PO (09:11)
--- NOTE | 2025-08-11 10:00 | WOUNDNOTE ---
[facility] RN note: Patient seen around 814. Patient admitted with cellulitis LLE. Patient lives alone.
See H&P for complete history.
PMH: HTN, former smoker, L TKR 02/28/[address] Peters.
Wound Location and type/assessment: Patient admitted with: scattered dermal LLE ulcer r/t LLE edema, pink with moderate serous drainage. +2 L leg edema. +Pedal pulses heard via portable Doppler. He wears compression stockings at home.
Appetite: good.
Pressure redistribution devices in place: [employer] Accumax. Patient moves self in bed and can ambulate.
Plan: LLE dressing changed. Heels off bed with pillow. Instructed patient skin/wound care LLE and application of L knee high Sedrick or his compression stocking. Suggested he use Sedrick wrap until his wounds heal then resume compression stocking.
Confirm orders with Dr. Johns including L knee high compression and update HALIMA Gentile.
Care plan to be updated and will follow as needed.
Note to case management requested for discharge: VN. Suggested to patient along with follow up at [facility].
Recommend follow up at wound care center upon discharge.
--- NOTE | 2025-08-11 11:04 | W.PN.HOSP.TC ---
Today's Communication/Plan
-
Assessment / Plan
Assessment / Plan
General: No Apparent Distress, Comfortable and Conversant
HEENT: NormoCephalic, Moist mucous membranes, Atraumatic
Respiratory: Clear and Non Labored Respirations
Cardiac: S1/S2 and Regular Rhythm; No Rub or Gallop
GI: Soft, Non Tender, Non Distended and Normal Bowel Sounds
Musculoskeletal: No Edema, no deformity
Skin: Warm and dry
: NO Dinh
Neuro: Awake, Alert, Nonfocal/grossly intact
Psych: Calm and Intact Judgment/Insight
Mr. Carlos is a 75-year-old male with a medical history of hypertension and osteoarthritis who presented with worsening left lower extremity swelling and wound. He reports having chronic swelling of his left lower extremity following knee surgery
in January 2025. He uses compression stockings at home. He developed a blister on his left leg that ruptured and has since been red and painful. His PCP prescribed him 2 courses of antibiotics (Levaquin and Bactrim) without any improvement. He has
been admitted for further evaluation and management.
Left lower extremity wound:
- Suspect secondary to chronic edema
- No evidence of DVT on ultrasound
- Antibiotic coverage with vancomycin for now, follow-up MRSA screen and wound culture
- Continue local wound care which he will need to continue after discharge
- Compression wraps/stockings as tolerated
Hypertension:
- Chronic, stable
- Continue home amlodipine 5 mg daily and HCTZ 50 mg daily
DVT prophylaxis: Subcu heparin
CODE STATUS: Full code
Total time spent on today's encounter was 53 minutes.
Anticipated Discharge: 24 - 48 hours
Subjective/Interval History
-
Date of Service: August 11, 2025
Patient was seen and examined at bedside this morning. Comfortable. Left lower extremity dressing applied by wound care.
Objective Data
-
Labs:
Laboratory Results
08/11/25
06:00
WBC 5.8
Hgb 11.9 L
Hct 35.2 L
Plt Count 225
Sodium 139
Potassium 4.1
Chloride 107
Carbon Dioxide 28
BUN 16
Creatinine 1.1
Glucose 98
Calcium 9.2
Total Bilirubin 0.8
AST 17
ALT 18
Alkaline Phosphatase 122
Vital Signs:
Vital Signs
Temp Pulse Resp BP Pulse Ox
99.2 F 76 16 140/85 97
08/11/25 08:36 08/11/25 08:36 08/11/25 08:36 08/11/25 09:11 08/11/25 08:36
Review of Systems
-
History Source: Patient
All other systems: Reviewed and negative
Skin: Reports Sores (Left lower extremity wounds)
Physical Exam
-
General: No Apparent Distress
--- NOTE | 2025-08-11 12:00 | CM ---
Reviewed the chart notes and spoke with the patient at the bedside. The patient resides alone in a second floor apartment with 14 steps to enter. The patient reports no DME or SNF, but has had [facility]. Discussed CM consult received for VN. Patient
selected VN. Referral sent in Care Port. Patient's pharmacy of choice is [facility]. CM continues to be available to patient/family and is monitoring medical plan for needs at discharge.
Plan: Discharge to home when medically stable with VN services. Referral placed in Care Port.
[2025-08-11] MEDS: VANCOCIN 275 MG IV (12:11)
--- NOTE | 2025-08-11 14:57 | VNURNOTE ---
Home Health Liaison met with patient at bedside to discuss [facility] nurse/therapy, visits, schedule and homebound status. Patient is agreeable and understands that visits at home will be 2-3 x per week to assess and teach medical and wound care
management. Patient is aware that [facility] will contact them for start of care in 1-2 days after discharge from . Provided contact number for [facility].
[facility] referral accepted in [facility] Port.
[2025-08-11 19:00] VITALS: BP 134/71
[2025-08-11] MEDS: HEPARIN SC (20:03)
[2025-08-11 23:00] VITALS: BP 139/81
[2025-08-12] MEDS: VANCOCIN 275 MG IV (05:57)
[2025-08-12 07:10] VITALS: BP 110/71
[2025-08-12] MEDS: ORETIC 50 MG PO (07:37)
[2025-08-12] MEDS: NORVASC 5 MG PO (07:39)
[2025-08-12] MEDS: TYLENOL 650 MG PO (07:39)
[2025-08-12] MEDS: HYDROPHOR 1 APPLIC TOPICAL (07:39)
[2025-08-12] MEDS: HEPARIN 5000 UNITS SC (07:41)
--- NOTE | 2025-08-12 08:10 | PHA.VAN.FU ---
Vancomycin Assessment / Plan
- Assessment
Renal Function: No New Labs Today
In the past 24 hrs, patient has been: Afebrile
- Dosing Plan
Continue: Vanc 1250mg Q24H
- Monitoring Plan
No level(s) ordered at this time: consider levels in next few days
- Follow Up
Pharmacy will continue to follow.
Vancomycin Follow UP
- -
Patient Age: 75
Patient Sex: Male
Vancomycin Day #: 2
Indication: Skin And Soft Tissue
Requesting Provider: Dr. Mcmanus
Pertinent Antimicrobial Allergies:
no pertinent antibiotic allergies
Height / Weight:
Height 5 ft 6 in
Actual Weight 80.24 kg
- Vital Signs / Lab Results
Temp Pulse Resp BP Pulse Ox
98.9 F 77 18 110/71 96
08/11/25 23:00 08/12/25 07:37 08/11/25 23:00 08/12/25 07:37 08/11/25 23:00
Lab Results - Hematology
08/10/25 08/10/25 08/11/25
18:32 20:05 06:00
WBC Cancelled 7.2 5.8
Lab Results - Chemistry
08/10/25 08/10/25 08/11/25
18:32 20:05 06:00
BUN Cancelled 21 H 16
Creatinine Cancelled 1.2 1.1
Estimated Creat Clear Cancelled 47 51
Albumin Cancelled Cancelled 3.2 L
08/10/25 08/10/25
18:32 20:06
Lactic Acid Cancelled 1.6
Microbiology Results
08/11/25 04:43 MRSA Screen - Final
Nose No Methicillin Resistant Staphylococcus aureus isolated.
08/10/25 20:07 Gram Stain - Preliminary
Leg - Left
--- NOTE | 2025-08-12 10:50 | W.DCSUMMARY ---
Discharge Summary
Discharge Data
Date of Admission: 08/10/25
Date of Discharge: 08/12/25
Total time spent discharging patient (in min): 56
-
Pending Results: No
Hospital Course
Mr. Carlos is a 75-year-old male with a medical history of hypertension and osteoarthritis who presented with worsening left lower extremity swelling and wound. He reports having chronic swelling of his left lower extremity following knee surgery
in January 2025. He uses compression stockings at home. He developed a blister on his left leg that ruptured and has since been red and painful. His PCP prescribed him 2 courses of antibiotics (Levaquin and Bactrim) without any improvement. He was
admitted for further evaluation and management.
Ultrasound imaging showed no evidence of DVT. He was started on antibiotic coverage with vancomycin. He received local wound care and compression wraps were maintained. He clinically improved. He will need ongoing wound care which can be
continued in the outpatient setting. His MRSA screen was negative. He has been transitioned to oral antibiotics with 5 more days of Augmentin to complete a total 7-day antibiotic course. He will need to continue follow-up with his primary care
physician. At time of hospital discharge he was medically stable.
General: No Apparent Distress, Comfortable and Conversant
HEENT: NormoCephalic, Moist mucous membranes, Atraumatic
Respiratory: Clear and Non Labored Respirations
Cardiac: S1/S2 and Regular Rhythm; No Rub or Gallop
GI: Soft, Non Tender, Non Distended and Normal Bowel Sounds
Musculoskeletal: Left lower extremity wound dressing in compression wrap in place, no deformity
Skin: Warm and dry
: NO Dinh
Neuro: Awake, Alert, Nonfocal/grossly intact
Psych: Calm and Intact Judgment/Insight
Discharge Plan
-
Patient Disposition: Home with Home Care
Discharge Diagnosis/Procedures: Left lower extremity wound
Other Services: VN
Wound Care: Continue wound care (see instructions)
Activity Restrictions/Additional Instructions:
Wound Care Instructions
LLE wounds-clean with saline or mild soap and water, Vaseline or Aquaphor ointment to dry skin le's daily, adaptic, ABD pad, secure with Kerlix wrap. Change daily and as needed for drainage.
L knee high Sedrick wrap or compression stocking (may remove at bedtime); reapply every morning.
Elevate heels off bed with pillow/s.
Elevate Le's frequently.
Follow up at wound care center call for an appointment.
Referrals:
Kp Tidwell PA [Family Provider, Family Practice]
Prescriptions:
New
amoxicillin-pot clavulanate 875-125 mg tablet
1 tab PO BID 5 Days Qty: 10 0RF
Continued
hydrochlorothiazide 50 mg Tablet
50 mg PO DAILY
amlodipine 5 mg Tablet
5 mg PO DAILY
Discharge Orders:
Discharge Patient (As Directed); Ordered 08/12/25
Ordered By: Julio Cesar Mcdonnell
Discharge Date and Time
Print Language: PAKISTANI
--- NOTE | 2025-08-12 12:00 | CM ---
Addendum entered by Rashawn Vora 08/12/25 12:03:
[facility] referred to and accepted.
Plan: Home w/ [facility]
Original Note:
Chart reviewed. Patient will d/c today
Met w/ patient bedside, denied any needs from CM. Patient will drive self home
IMM verbally reviewed, copy provided, copy on chart
Plan: Home, no needs
[2025-08-12 12:10] VITALS: BP 118/82
== END 2025-08-12 13:50 | disposition home health service (06) | DRG 603 ==
LOC: 4 WEST ACU 22:38
PROVIDERS: ADMITTING PHYSICIAN Hospitalist; ATTENDING PHYSICIAN Internal Medicine; EMERGENCY PHYSICIAN Emergency Medicine; FAMILY PHYSICIAN Physician Assistant
DX: L03.116 Cellulitis of left lower limb (principal); I10 Essential (primary) hypertension; K21.9 Gastro-esophageal reflux disease without esophagitis; R73.03 Prediabetes; I87.2 Venous insufficiency (chronic) (peripheral); I89.0 Lymphedema, not elsewhere classified; M19.90 Unspecified osteoarthritis, unspecified site; S80.822A Blister (nonthermal), left lower leg, initial encounter; X58.XXXA Exposure to other specified factors, initial encounter; Z79.2 Long term (current) use of antibiotics; Z87.891 Personal history of nicotine dependence; Z96.652 Presence of left artificial knee joint; Z79.899 Other long term (current) drug therapy; Z79.82 Long term (current) use of aspirin
CPT/HCPCS: 80048; 80053; 83605; 85025; 87070; 87077; 87186; 87205; 93971; 96365; 96366; 99285

== ENCOUNTER → 2025-08-25 12:37 | Outpatient (REF) | payer OTHER, SELFPAY | LOC: WOUND 12:37 | PROVIDERS: ATTENDING PHYSICIAN Surgery; FAMILY PHYSICIAN Physician Assistant | DX: I87.312 Chronic venous hypertension (idiopathic) with ulcer of left lower extremity (principal); L97.222 Non-pressure chronic ulcer of left calf with fat layer exposed; L97.322 Non-pressure chronic ulcer of left ankle with fat layer exposed; I73.9 Peripheral vascular disease, unspecified; I87.2 Venous insufficiency (chronic) (peripheral) | CPT/HCPCS: 99204 ==

== ENCOUNTER 2025-09-01 13:43 | Outpatient (REF) | payer OTHER, SELFPAY | END 2025-09-01 23:59 | disposition home or self-care (01) | LOC: WOUND 13:43 | PROVIDERS: ATTENDING PHYSICIAN Surgery; FAMILY PHYSICIAN Physician Assistant | DX: I87.312 Chronic venous hypertension (idiopathic) with ulcer of left lower extremity (principal); L97.222 Non-pressure chronic ulcer of left calf with fat layer exposed; L97.322 Non-pressure chronic ulcer of left ankle with fat layer exposed; I73.9 Peripheral vascular disease, unspecified; I87.2 Venous insufficiency (chronic) (peripheral) | CPT/HCPCS: 99212 ==

== ENCOUNTER 2025-09-23 06:11 | Outpatient (RCR) | payer OTHER, SELFPAY | END 2025-09-23 23:59 | disposition home or self-care (01) | LOC: RPT 06:11 | PROVIDERS: ATTENDING PHYSICIAN Specialist; FAMILY PHYSICIAN Physician Assistant | DX: I89.0 Lymphedema, not elsewhere classified (principal); Z73.6 Limitation of activities due to disability; M62.81 Muscle weakness (generalized); Z96.652 Presence of left artificial knee joint | CPT/HCPCS: 97110; 97163; 97530 ==

== ENCOUNTER 2025-10-19 10:21 | Outpatient (RCR) | payer OTHER, SELFPAY | END 2025-10-19 23:59 | disposition home or self-care (01) | LOC: RPT 10:21 | PROVIDERS: ATTENDING PHYSICIAN Specialist; FAMILY PHYSICIAN Physician Assistant | DX: I89.0 Lymphedema, not elsewhere classified (principal); Z73.6 Limitation of activities due to disability; M62.81 Muscle weakness (generalized); Z96.652 Presence of left artificial knee joint | CPT/HCPCS: 97530 ==

== ENCOUNTER 2025-11-08 07:31 | Outpatient (RCR) | payer OTHER, SELFPAY | END 2025-11-08 14:38 | disposition home or self-care (01) | LOC: RPT 07:31 | PROVIDERS: ATTENDING PHYSICIAN Specialist; FAMILY PHYSICIAN Physician Assistant | DX: I89.0 Lymphedema, not elsewhere classified (principal); Z73.6 Limitation of activities due to disability; M62.81 Muscle weakness (generalized); Z96.652 Presence of left artificial knee joint | CPT/HCPCS: 97140; 97530 ==